=== PATIENT | male | born 1980 | race African-American/Black ===

== ENCOUNTER 2019-08-23 07:25 | Emergency (ER) | payer SELFPAY ==
[~2019-08-23] VITALS: Ht 188 cm; Wt 113.6 kg
[2019-08-23 07:31] VITALS: BP 134/75
[2019-08-23] MEDS ORDERED: DEXAMETHASONE 4 MG TABLET PO ONE (07:45)
[2019-08-23] MEDS ORDERED: PRED20TA PO (07:47)
[2019-08-23] MEDS ORDERED: ALBU2.5V8 IH (07:47)
--- NOTE | 2019-08-23 07:47 | PHYS DOC ---
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 Reports had started 2 to 3 days ago and is intermittent in nature. Patient reports he has a metered-dose inhaler which is stuck in a spacer and does not seem to be working very well. Patient reports there is white discharge in the spacer. Also reports his nebulizer machine also no longer works. Patient denies any fever or chills. Denies known exposure to COVID-19. Denies trauma. Denies leg swelling or calf tenderness. Review of Systems: Review of Systems: Constitutional: Denies fever or chills Eyes: Denies redness or eye pain HENT: Denies nasal congestion or sore throat Respiratory: Reports shortness of breath and wheezing Cardiovascular: Denies chest pain or palpitations GI: Denies abdominal pain, nausea, or vomiting : Denies dysuria or hematuria Musculoskeletal: Denies back pain or joint pain Integument: Denies rash or skin lesions Neurologic: Denies headache, focal weakness or sensory changes Complete systems were reviewed and found to be within normal limits, except as documented in this note. Physical Exam: PE: Constitutional: Well developed, well nourished, no acute distress, non-toxic appearance HENT: Normocephalic, atraumatic Eyes: Conjunctiva normal, no discharge Neck: Normal range of motion, no tenderness, supple Cardiovascular: Heart rate normal, regular rhythm Lungs & Thorax: Bilateral breath sounds with mild wheezing throughout, no r espiratory distress, no accessory muscle use Abdomen: Soft, no tenderness Skin: Warm, dry, no erythema, no rash Extremities: No tenderness, ROM intact, no edema Neurologic: Alert and oriented X 3, no focal deficits noted Psychologic: Affect normal, judgment normal EKG: EKG: [] Radiology/Procedures: Radiology/Procedures: [] Course & Med Decision Making: Course & Med Decision Making Patient presents with HPI and physical exam consistent for mild asthma exacerbation. Patient advised secondary to COVID-19 we are no longer providing nebulizer treatments within the department. Patient provided a spacer for use with prescribed MDI. Symptomatic steroid also provided. Patient's sats are stable. No increased work of breathing noted. Patient is afebrile. Patient stable for discharge with outpatient follow-up with PCP. Discussed findings and plan with patient, who acknowledges understanding and agreement. COVID-19 CRITERIA: The patient was evaluated during the global COVID-19 pandemic, and that diagnosis was suspected/considered upon their initial presentation. Their evaluation, treatment and testing was consistent with current guidelines for patients who present with complaints or symptoms that may be related to COVID-19. Dragon Disclaimer: Dragon Disclaimer: This electronic medical record was generated, in whole or in part, using a voice recognition dictation system. Departure Departure Impression: Primary Impression: Asthma exacerbation Qualified Codes: J45.21 - Mild intermittent asthma with (acute) exacerbation Disposition: HOME, SELF-CARE Condition: STABLE Patient Instructions: Asthma, Adult, Xiof-ss-Oool Scripts Prednisone (PREDNISONE) 20 Mg Tablet 2 TAB PO DAILY, #8 TAB Start this prescription tomorrow, Tuesday08/24/19 Prov: NOAH SYED DO 08/23/19 Albuterol Sulfate (Proair Hfa) 8.5 Gm Hfa.aer.ad 2 PUFF IH PRN Q4-6HRS PRN for wheezing, #1 INHALER 0 Refills Prov: NOAH SYED DO 08/23/19 Justicifation of Admission Dx: Justifications for Admission: Justification of Admission Dx: N/A COVID-19 Assessment: COVID-19 Patient Risks: Age 65 or older: No Sign of co-morbidity: Yes Exp to person + for COVID: No Exp to PUI: No Travel from affected area: No Lower respiratory symptoms: Yes Fever: No PPE Use: Full PPE with N95 mask or PAPR: Yes NOAH SYED DO Aug 23, 2019 07:47
== END 2019-08-23 08:10 | disposition home or self-care (01) ==
LOC: ER 07:25
DX: J45.21 Mild intermittent asthma with (acute) exacerbation (principal); R06.02 Shortness of breath; J45.909 Unspecified asthma, uncomplicated; Z90.89 Acquired absence of other organs; Z98.890 Other specified postprocedural states
CPT/HCPCS: 99283; J8540